=== PATIENT | male | born 1975 | race African-American/Black ===

== ENCOUNTER 2019-06-24 17:17 | Inpatient (IN) | payer OTHER ==
[2019-06-24 18:23] VITALS: BMI 26.6
--- NOTE | 2019-06-24 19:49 | HP ---
CIWA Score - Admission Criteria [facility] Guidelines: Admission for Medically Managed Detox: Requires at least one of the followin. CIWA greater than 12 2. Seizures within the past 24 hours 3. Delirium tremens within the past 24 hours 4. Hallucinations within the past 24 hours 5. Acute intervention needed for co occurring medical disorder 6. Acute intervention needed for co occurring psychiatric disorder 7. Severe withdrawal that cannot be handled at a lower level of care (continued vomiting, continued diarrhea, abnormal vital signs) requiring intravenous medication and/or fluids 8. Admission ROS [facility] Chief Complaint: here for rehab Allergies/Adverse Reactions: Allergies Allergy/AdvReac Type Severity Reaction Status Date / Time Fish Containing Products Allergy Severe Hives Verified 06/24/19 18:15 shellfish derived AdvReac Severe Hives Verified 06/24/19 18:15 History of Present Illness: 43 Y.O. MALE WITH ALCOHOLISM AND COCAINE DEPENDENCE HERE FOR REHAB. CLIENT IS REFERRED BY [facility] AFTER COMPLETING DETOX. WHILE THERE HERE WAS TRANSFERRED TO [facility] FOR A SCHIZOPHRENIA. HE SPENT 5 DAYS THERE AND NOW IS HERE FOR REHAB [facility] HAD NO OPEN BEDS. HX/O ALCOHOLISM SINCE THE AGE OF 27. DRINKS DAILY. DENIES SEIZURES BUT DOES REPORT BLACK OUTS. COCAINE STARTED ALSO AT THE SAME TIME USING ABOUT 3 TO 4 TIMES A WEEK APPROX 60 DOLLARS A WEEK. DENIES IVDU. REPORTS LONGEST CLEAN TIME 3 MONTHS. MOST RECENT CLEAN TIME 1 MONTH IN NOV 2018. HOMELESS, UNMEPLOYED, PENDING COURT CASE X3 Exam Limitations: No Limitations - Ebola screening Have you traveled outside of the country in the last 21 days: No (N) Have you had contact with anyone from an Ebola affected area: No Do you have a fever: No - Review of Systems Constitutional: Night Sweats, Changes in sleep EENT: reports: Dental Problems (MISSING TEETH /CARIES) Cardiac: reports: No Symptoms Reported GI: reports: No Symptoms Reported : reports: No Symptoms Reported Musculoskeletal: reports: No Symptoms Reported Integumentary: reports: No Symptoms Reported Neuro: reports: No Symptoms reported Endocrine: reports: No Symptoms Reported Hematology: reports: No Symptoms Reported Psychiatric: reports: Orientated x3, Anxious, Depressed (DENIES SI) Other Systems: Reviewed and Negative Patient History - Patient Medical History Hx Anemia: No Hx Asthma: Yes Hx Cancer: No Hx Cardiac Disorders: No Hx Congestive Heart Failure: No Hx Hypertension: No Hx Hypercholesterolemia: No Hx Pacemaker: No HX Cerebrovascular Accident: No Hx Seizures: No Hx Dementia: No Hx Diabetes: No Hx Gastrointestinal Disorders: No Hx Liver Disease: No Hx Genitourinary Disorders: No Hx Sexually Transmitted Disorders: No Hx Renal Disease (ESRD): No Hx Thyroid Disease: No Hx Human Immunodeficiency Virus (HIV): No Hx Hepatitis C: No Hx Depression: Yes Hx Suicide Attempt: No Hx Bipolar Disorder: No Hx Schizophrenia: Yes Other Medical History: DENIES - Patient Surgical History Past Surgical History: No - PPD History Previous Implant?: Yes Documented Results: Negative w/o proof Implanted On Prior [facility] Admission?: No PPD to be Administered?: Yes - Smoking Cessation Smoking history: Current every day smoker Have you smoked in the past 12 months: Yes Aproximately how many cigarettes per day: 5 Cigars Per Day: 0 Hx Chewing Tobacco Use: No Initiated information on smoking cessation: Yes 'Breaking Loose' booklet given: 06/24/19 - Substance & Tx. History Hx Alcohol Use: Yes Hx Substance Use: Yes Substance Use Type: Alcohol, Cocaine Hx Substance Use Treatment: Yes ([facility]) - Substances abused Alcohol Substance route: Oral Frequency: Daily Amount used: 2 pints of vodka Age of first use: 27 Date of last use: 06/20/19 Cocaine Substance route: Smoking Frequency: 3-6 times per week Amount used: 20 dollars Age of first use: 19 Date of last use: 06/18/19 Family Disease History - Family Disease History Family Disease History: Other: Father (ALCOHOL), Sister (DRUGS) Admission Physical Exam S - Vital Signs Vital Signs: Vital Signs - 24 hr 06/24/19 18:13 Temperature 97.0 F L Pulse Rate 82 Respiratory 20 Rate - Physical General Appearance: Yes: No Apparent Distress HEENTM: Yes: EOMI, Normocephalic, Normal Voice, [place], Pharynx Normal Respiratory: Yes: Chest Non-Tender, Lungs Clear, Normal Breath Sounds, No Respiratory Distress, No Accessory Muscle Use Neck: Yes: No masses,lesions,Nodules, Supple, Trachea in good position Breast: Yes: Breast Exam Deferred Cardiology: Yes: Regular Rhythm, Regular Rate, S1, S2 Abdominal: Yes: Normal Bowel Sounds, Non Tender, Flat, Soft Genitourinary: Yes: Within Normal Limits Back: Yes: Normal Inspection Musculoskeletal: Yes: full range of Motion, Gait Steady Extremities: Yes: Normal Capillary Refill, Normal Range of Motion, Non-Tender, Tremors Neurological: Yes: Fully Oriented, Alert, Motor Strength 5/5, Depressed Affect ( DENIES SI) Integumentary: Yes: Dry, Warm Lymphatic: Yes: Within Normal Limits - Diagnostic (1) Uncomplicated alcohol dependence Current Visit: Yes Status: Acute (2) Cocaine abuse, uncomplicated Current Visit: Yes Status: Acute (3) Homeless Current Visit: Yes Status: Suspected (4) Substance induced mood disorder Current Visit: Yes Status: Suspected (5) Psychiatric disorder Current Visit: Yes Status: Chronic Comment: SCHIZOPHRENIA Cleared for Admission [facility] - Detox or Rehab Detox Regimen/Protocol: Not Applicable Claeared for Rehab Admission: Yes Breathalyzer - Breathalyzer Breathalyzer: 0 Urine Drug Screen - Test Device Lot number: [id number] Expiration date: 04/01/21 - Control Is test valid?: Yes - Results Drug screen NEGATIVE: No Urine drug screen results: BZO-Benzodiazepines Inpatient Rehab Admission - Rehab Decision to Admit Inpatient rehab admission?: Yes - Initial Determination Are CD services needed?: Yes Free of communicable disease: Yes Not in need of hospitalization: Yes - Rehab Admission Criteria Previous failed treatment: Yes Poor recovery environment: Yes Comorbidities: Yes Lacks judgement: No Patient is meeting Inpatient Rehab admission criteria:: Yes
[2019-06-24] MEDS ORDERED: P-EPHED 60MG/TRIPROLIDI 2.5MG TABLET PO PRN (19:55)
[2019-06-24] MEDS ORDERED: LOPERAMIDE HCL 2 MG CAPSULE PO PRN (19:55)
[2019-06-24] MEDS ORDERED: MENTHOL/PHENOL 1 EACH UD MM PRN (19:55)
[2019-06-24] MEDS ORDERED: IBUPROFEN 400 MG TABLET (FP) PO PRN (19:55)
[2019-06-24] MEDS ORDERED: ACETAMINOPHEN 325 MG TABLET (FP) PO PRN (19:55)
[2019-06-24] MEDS ORDERED: guaiFENesin 200 MG/10 ML 10 ML UNIT-DOSE CUPS PO PRN (19:55)
[2019-06-24] MEDS: THIAMINE HCL 100 MG TABLET (FP) PO SCH (22:20)
[2019-06-25] MEDS: NICOTINE 14 MG/24 HOURS TOPICAL PATCH TD SCH (10:48)
[2019-06-25] MEDS: PRENATAL VITAMINS W/ FOLIC ACID TABLET (FP) PO SCH (10:48)
[2019-06-25] MEDS: NICOTINE POLACRILEX 2 MG GUM BC PRN (10:51)
[2019-06-25 10:59] LABS: HEMATOCRIT 39.1 % (35.4-49); HEMOGLOBIN 12.8 GM/dL (11.7-16.9); MCH 29.5 pg (25.7-33.7); MCHC 32.7 g/dl (32.0-35.9); MEAN CELL VOLUME 90.2 fl (80-96); RBC 4.33 M/mm3 (4.00-5.60); RDW 15.2 % (11.9-15.9); WHITE BLOOD COUNT 5.7 K/mm3 (4.0-10.0)
[2019-06-25 11:15] LABS: BILIRUBIN,TOTAL 0.3 mg/dL (0.2-1); BLOOD UREA NITROGEN 20.6 mg/dL (7-18); CALCIUM 8.9 mg/dL (8.5-10.1); CREATININE 0.9 mg/dL (0.55-1.3); POTASSIUM 3.8 mmol/L (3.5-5.1); TOT PROT 7.5 g/dl (6.4-8.2)
[2019-06-25 11:25] LABS: PLATELET COUNT 319 K/MM3 (134-434)
[2019-06-25 14:20] LABS: RPR REACTIVE 1:8 (NONREACTIVE)
[2019-06-25 18:34] LABS: PH,URINE 7.5 (5.0-8.0); URINE APPEARANCE CLEAR; URINE BILIRUBIN NEGATIVE (NEGATIVE); URINE COLOR YELLOW; URINE GLUCOSE (UA) NEGATIVE (NEGATIVE); URINE KETONE NEGATIVE (NEGATIVE); URINE LEUK ESTERASE NEGATIVE (NEGATIVE); URINE NITRITE NEGATIVE (NEGATIVE); URINE PROTEIN NEGATIVE (NEGATIVE); URINE UROBILINOGEN 0.2 mg/dL (0.2-1.0)
[2019-06-25] MEDS: THIAMINE HCL 100 MG TABLET (FP) PO SCH (21:56)
[2019-06-25] MEDS: MELATONIN 5 MG TABLETS PO PRN (21:56)
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
[2019-06-26] MEDS: PRENATAL VITAMINS W/ FOLIC ACID TABLET (FP) PO SCH (09:57)
[2019-06-26] MEDS: NICOTINE 14 MG/24 HOURS TOPICAL PATCH TD SCH (09:57)
[2019-06-26] MEDS ORDERED: ARIPiprazole 10 MG TABLET PO SCH (13:45)
[2019-06-26] MEDS: GABAPENTIN 300 MG CAPSULE (FP) PO SCH ×2 (13:47→21:58)
[2019-06-26] MEDS: ARIPiprazole 10 MG TABLET PO SCH (14:57)
[2019-06-26 15:27] LABS: TREPONEMA ANTIBODY REACTIVE (NONREACTIVE)
[2019-06-26] MEDS: THIAMINE HCL 100 MG TABLET (FP) PO SCH (21:58)
[2019-06-26] MEDS: MELATONIN 5 MG TABLETS PO PRN (21:58)
[2019-06-26] MEDS: hydrOXYzine PAMOATE 50 MG CAPSULE (FP) PO PRN (21:58)
[2019-06-26] MEDS: traZODone HCL 50 MG TABLET (FP) PO SCH (21:58)
[2019-06-27] MEDS: GABAPENTIN 300 MG CAPSULE (FP) PO SCH ×3 (06:20→21:51)
--- NOTE | 2019-06-27 13:03 | EKG ---
Test Reason : Blood Pressure : / mmHG Vent. Rate : 077 BPM Atrial Rate : 077 BPM P-R Int : 150 ms QRS Dur : 098 ms QT Int : 396 ms P-R-T Axes : 068 055 057 degrees QTc Int : 448 ms NORMAL SINUS RHYTHM SEPTAL INFARCT , AGE UNDETERMINED ABNORMAL ECG NO PREVIOUS ECGS AVAILABLE Confirmed by ESTELA BEAR, KELLE ([id number]) on 06/27/2019 1:02:33 PM Referred By: Jenelle Matos Confirmed By:KELLE PALMER MD
[2019-06-27] MEDS: PRENATAL VITAMINS W/ FOLIC ACID TABLET (FP) PO SCH (13:48)
[2019-06-27] MEDS: ARIPiprazole 10 MG TABLET PO SCH (13:48)
[2019-06-27] MEDS: NICOTINE 14 MG/24 HOURS TOPICAL PATCH TD SCH (13:48)
[2019-06-27] MEDS: traZODone HCL 50 MG TABLET (FP) PO SCH (21:50)
[2019-06-27] MEDS: THIAMINE HCL 100 MG TABLET (FP) PO SCH (21:51)
[2019-06-27] MEDS: MAGNESIUM HYDROX 2400MG/30ML ORAL SUSPENSION 30 ML CUP PO PRN (21:52)
[2019-06-28] MEDS: GABAPENTIN 300 MG CAPSULE (FP) PO SCH ×3 (06:27→21:07)
[2019-06-28] MEDS: PRENATAL VITAMINS W/ FOLIC ACID TABLET (FP) PO SCH (10:10)
[2019-06-28] MEDS: ARIPiprazole 10 MG TABLET PO SCH (10:10)
[2019-06-28] MEDS: NICOTINE 14 MG/24 HOURS TOPICAL PATCH TD SCH (10:11)
--- NOTE | 2019-06-28 10:25 | PN ---
[facility] Progress Note (SOAP) Subjective: patient with RPR of 1:8 upon admission. Patient states he was treated at [facility] for the same. Objective: 06/28/19 10:23 Laboratory Tests 06/25/19 06/25/19 06/25/19 09:35 09:35 09:35 WBC 5.7 RBC 4.33 Hgb 12.8 Hct 39.1 MCV 90.2 MCH 29.5 MCHC 32.7 RDW 15.2 Plt Count 319 MPV 8.0 Sodium 141 Potassium 3.8 Chloride 104 Carbon Dioxide 29 Anion Gap 8 BUN 20.6 H Creatinine 0.9 Est GFR (CKD-EPI)AfAm 121.67 Est GFR (CKD-EPI)NonAf 104.98 Random Glucose 97 Calcium 8.9 Total Bilirubin 0.3 AST 27 ALT 64 H Alkaline Phosphatase 90 Total Protein 7.5 Albumin 4.0 Urine Color Urine Appearance Urine pH Ur Specific [place] Urine Protein Urine Glucose (UA) Urine Ketones Urine Blood Urine Nitrite Urine Bilirubin Urine Urobilinogen Ur Leukocyte Esterase RPR Titer Reactive 1:8 H T.pallidum Ab (A) Reactive 06/25/19 18:00 WBC RBC Hgb Hct MCV MCH MCHC RDW Plt Count MPV Sodium Potassium Chloride Carbon Dioxide Anion Gap BUN Creatinine Est GFR (CKD-EPI)AfAm Est GFR (CKD-EPI)NonAf Random Glucose Calcium Total Bilirubin AST ALT Alkaline Phosphatase Total Protein Albumin Urine Color Yellow Urine Appearance Clear Urine pH 7.5 Ur Specific [place] 1.017 Urine Protein Negative Urine Glucose (UA) Negative Urine Ketones Negative Urine Blood Negative Urine Nitrite Negative Urine Bilirubin Negative Urine Urobilinogen 0.2 Ur Leukocyte Esterase Negative RPR Titer T.pallidum Ab (A) Assessment: Positive RPR 06/28/19 10:24 Plan: Recently treated at [facility]. Educated re: safer sex.
[2019-06-28] MEDS: MELATONIN 5 MG TABLETS PO PRN (21:07)
[2019-06-28] MEDS: THIAMINE HCL 100 MG TABLET (FP) PO SCH (21:07)
[2019-06-28] MEDS: traZODone HCL 50 MG TABLET (FP) PO SCH (21:07)
[2019-06-28] MEDS: MAGNESIUM HYDROX 2400MG/30ML ORAL SUSPENSION 30 ML CUP PO PRN (21:10)
[2019-06-29] MEDS: GABAPENTIN 300 MG CAPSULE (FP) PO SCH ×3 (06:00→21:46)
[2019-06-29] MEDS: NICOTINE 14 MG/24 HOURS TOPICAL PATCH TD SCH (10:12)
[2019-06-29] MEDS: ARIPiprazole 10 MG TABLET PO SCH (10:12)
[2019-06-29] MEDS: PRENATAL VITAMINS W/ FOLIC ACID TABLET (FP) PO SCH (10:12)
[2019-06-29] MEDS: MAGNESIUM HYDROX 2400MG/30ML ORAL SUSPENSION 30 ML CUP PO PRN (17:03)
[2019-06-29] MEDS: traZODone HCL 50 MG TABLET (FP) PO SCH (21:46)
[2019-06-29] MEDS: THIAMINE HCL 100 MG TABLET (FP) PO SCH (21:46)
[2019-06-29] MEDS: MAGNESIUM CITRATE 300 ML BOTTLE PO PRN (21:48)
[2019-06-30] MEDS: GABAPENTIN 300 MG CAPSULE (FP) PO SCH ×3 (06:25→21:09)
[2019-06-30] MEDS: NICOTINE 14 MG/24 HOURS TOPICAL PATCH TD SCH (10:44)
[2019-06-30] MEDS: PRENATAL VITAMINS W/ FOLIC ACID TABLET (FP) PO SCH (10:44)
[2019-06-30] MEDS: ARIPiprazole 10 MG TABLET PO SCH (10:44)
[2019-06-30] MEDS: traZODone HCL 50 MG TABLET (FP) PO SCH (21:09)
[2019-06-30] MEDS: THIAMINE HCL 100 MG TABLET (FP) PO SCH (21:09)
[2019-06-30] MEDS: MELATONIN 5 MG TABLETS PO PRN (21:10)
[2019-06-30] MEDS: MAGNESIUM CITRATE 300 ML BOTTLE PO PRN (21:11)
[2019-07-01] MEDS: GABAPENTIN 300 MG CAPSULE (FP) PO SCH ×3 (05:52→21:33)
[2019-07-01] MEDS: ARIPiprazole 10 MG TABLET PO SCH (10:05)
[2019-07-01] MEDS: PRENATAL VITAMINS W/ FOLIC ACID TABLET (FP) PO SCH (10:05)
[2019-07-01] MEDS: NICOTINE 14 MG/24 HOURS TOPICAL PATCH TD SCH (10:06)
[2019-07-01] MEDS: traZODone HCL 50 MG TABLET (FP) PO SCH (21:33)
[2019-07-01] MEDS: MELATONIN 5 MG TABLETS PO PRN (21:33)
[2019-07-01] MEDS: THIAMINE HCL 100 MG TABLET (FP) PO SCH (21:33)
[2019-07-01] MEDS: MAGNESIUM HYDROX 2400MG/30ML ORAL SUSPENSION 30 ML CUP PO PRN (21:34)
[2019-07-02] MEDS: GABAPENTIN 300 MG CAPSULE (FP) PO SCH ×3 (06:13→21:47)
[2019-07-02] MEDS: NICOTINE 14 MG/24 HOURS TOPICAL PATCH TD SCH (10:13)
[2019-07-02] MEDS: PRENATAL VITAMINS W/ FOLIC ACID TABLET (FP) PO SCH (10:13)
[2019-07-02] MEDS: traZODone HCL 50 MG TABLET (FP) PO SCH (21:46)
[2019-07-02] MEDS: THIAMINE HCL 100 MG TABLET (FP) PO SCH (21:47)
[2019-07-02] MEDS: MAGNESIUM CITRATE 300 ML BOTTLE PO PRN (21:59)
[2019-07-03] MEDS: GABAPENTIN 300 MG CAPSULE (FP) PO SCH ×3 (06:17→21:46)
[2019-07-03] MEDS: PRENATAL VITAMINS W/ FOLIC ACID TABLET (FP) PO SCH (10:13)
[2019-07-03] MEDS: NICOTINE 14 MG/24 HOURS TOPICAL PATCH TD SCH (10:38)
[2019-07-03] MEDS: hydrOXYzine PAMOATE 50 MG CAPSULE (FP) PO PRN (14:13)
[2019-07-03] MEDS: traZODone HCL 50 MG TABLET (FP) PO SCH (21:46)
[2019-07-03] MEDS: THIAMINE HCL 100 MG TABLET (FP) PO SCH (21:46)
[2019-07-03] MEDS: MELATONIN 5 MG TABLETS PO PRN (21:47)
[2019-07-04] MEDS: GABAPENTIN 300 MG CAPSULE (FP) PO SCH ×3 (06:21→21:42)
[2019-07-04] MEDS: NICOTINE 14 MG/24 HOURS TOPICAL PATCH TD SCH (10:01)
[2019-07-04] MEDS: PRENATAL VITAMINS W/ FOLIC ACID TABLET (FP) PO SCH (10:01)
[2019-07-04] MEDS: NICOTINE POLACRILEX 2 MG GUM BC PRN (10:02)
[2019-07-04] MEDS: THIAMINE HCL 100 MG TABLET (FP) PO SCH (21:42)
[2019-07-04] MEDS: MELATONIN 5 MG TABLETS PO PRN (21:42)
[2019-07-04] MEDS: traZODone HCL 50 MG TABLET (FP) PO SCH (21:42)
[2019-07-05] MEDS: GABAPENTIN 300 MG CAPSULE (FP) PO SCH ×3 (06:03→21:11)
[2019-07-05] MEDS: PRENATAL VITAMINS W/ FOLIC ACID TABLET (FP) PO SCH (09:55)
[2019-07-05] MEDS: NICOTINE POLACRILEX 2 MG GUM BC PRN (09:56)
[2019-07-05] MEDS: NICOTINE 14 MG/24 HOURS TOPICAL PATCH TD SCH (09:56)
[2019-07-05] MEDS: MAG HYDROX/AL HYDROX/SIMETH 30 ML UNIT-DOSE CUP PO PRN (15:43)
[2019-07-05] MEDS: THIAMINE HCL 100 MG TABLET (FP) PO SCH (21:10)
[2019-07-05] MEDS: MELATONIN 5 MG TABLETS PO PRN (21:11)
[2019-07-05] MEDS: traZODone HCL 50 MG TABLET (FP) PO SCH (21:11)
[2019-07-06] MEDS: GABAPENTIN 300 MG CAPSULE (FP) PO SCH ×3 (06:03→21:44)
[2019-07-06] MEDS: NICOTINE 14 MG/24 HOURS TOPICAL PATCH TD SCH (10:14)
[2019-07-06] MEDS: PRENATAL VITAMINS W/ FOLIC ACID TABLET (FP) PO SCH (10:14)
[2019-07-06] MEDS: NICOTINE POLACRILEX 2 MG GUM BC PRN (10:15)
[2019-07-06] MEDS ORDERED: PENICILLIN G BENZATHINE 2,400,000 UNIT/4 ML PFS IM ONE (10:17)
--- NOTE | 2019-07-06 10:29 | PN ---
[facility] Progress Note (SOAP) Subjective: Patient has an RPR of 1.8. He reported that he received one dose of penicillin 2.4 million units at his program (please see previous note). Subsequently, on 07/05, [facility] received a request from [facility] to give patient 2 more doses of Penicillin 2.4 million units. In discussion with the patient today, he reports that he received 2 doses at one time at his program, but agreed to at least one more dose of penicillin. Objective: Physical: General: No apparent distress Heart: S1 s2 audible Lungs: clear Abd: soft Genitourinary: no lesions noted Skin: no rashes or lesions. Lymph: no palpable lymph nodes. 07/06/19 10:28 Assessment: syphilis, treatment incomplete. 07/06/19 10:29 07/06/19 10:32 Plan: Will give one dose of Penicillin today. Patient consented to allow me to talk to program medical provider about his care to determine if he has received one or two doses of penicillin. Once previous dose is confirmed, I will contact the [facility] international representative and share information and then treat accordingly (one more dose if needed). Patient agreed to this plan.
[2019-07-06] MEDS: traZODone HCL 50 MG TABLET (FP) PO SCH (21:43)
[2019-07-06] MEDS: THIAMINE HCL 100 MG TABLET (FP) PO SCH (21:44)
[2019-07-07] MEDS: GABAPENTIN 300 MG CAPSULE (FP) PO SCH ×3 (05:59→21:41)
[2019-07-07] MEDS: PRENATAL VITAMINS W/ FOLIC ACID TABLET (FP) PO SCH (10:08)
[2019-07-07] MEDS: NICOTINE 14 MG/24 HOURS TOPICAL PATCH TD SCH (10:08)
--- NOTE | 2019-07-07 14:54 | PN ---
[facility] Progress Note (SOAP) Subjective: Patient with incomplete treatment of syphilis. [facility] requested that he be given 2 more doses of PCN. Patient was given one dose of 2.4 Million unites of PCN at his program. Patient believed he was given 2 doses, but agreed to one dose here and to give me consent to talk to his medical provider at his program. Objective: P/E: General: no apparent distress Skin: no rash on trunk, extremities, palms of hands or soles of feet. Neuro: No neurological deficits noted. 07/07/19 14:49 07/07/19 14:50 Assessment: Syphilis, incomplete treatment. 07/07/19 14:50 Plan: Confirmed with his provider, Dr. Mine Garcia, that the patient receive one dose of PCN that was split into two injections. I explained this to the patient and that he needed a third dose. Patient agreed to third dose. In accordance with direction from [facility], patient will receive the third dose next week, if he is discharged before he receives the third dose, he will be given a prescription for doxycycline. Patient agreed to plan. Amelia Arredondo of the [facility] was called and message was left for her to call me back. Will follow up.
[2019-07-07] MEDS: NICOTINE POLACRILEX 2 MG GUM BC PRN (15:13)
[2019-07-07] MEDS: SENNOSIDES 8.6MG TABLET (FP) PO PRN (15:15)
[2019-07-07] MEDS: THIAMINE HCL 100 MG TABLET (FP) PO SCH (21:41)
[2019-07-07] MEDS: MELATONIN 5 MG TABLETS PO PRN (21:41)
[2019-07-07] MEDS: traZODone HCL 50 MG TABLET (FP) PO SCH (21:41)
[2019-07-08] MEDS: GABAPENTIN 300 MG CAPSULE (FP) PO SCH ×3 (06:06→21:42)
[2019-07-08] MEDS: PRENATAL VITAMINS W/ FOLIC ACID TABLET (FP) PO SCH (10:11)
[2019-07-08] MEDS: NICOTINE 14 MG/24 HOURS TOPICAL PATCH TD SCH (10:11)
[2019-07-08] MEDS: MAGNESIUM CITRATE 300 ML BOTTLE PO PRN (10:13)
[2019-07-08] MEDS: NICOTINE POLACRILEX 2 MG GUM BC PRN (10:14)
[2019-07-08] MEDS: traZODone HCL 50 MG TABLET (FP) PO SCH (21:42)
[2019-07-08] MEDS: THIAMINE HCL 100 MG TABLET (FP) PO SCH (21:42)
[2019-07-08] MEDS: MAGNESIUM HYDROX 2400MG/30ML ORAL SUSPENSION 30 ML CUP PO PRN (21:43)
[2019-07-08] MEDS: MELATONIN 5 MG TABLETS PO PRN (21:45)
[2019-07-09] MEDS: GABAPENTIN 300 MG CAPSULE (FP) PO SCH ×3 (06:15→21:06)
[2019-07-09] MEDS: NICOTINE 14 MG/24 HOURS TOPICAL PATCH TD SCH (10:14)
[2019-07-09] MEDS: PRENATAL VITAMINS W/ FOLIC ACID TABLET (FP) PO SCH (10:14)
[2019-07-09] MEDS: MAG HYDROX/AL HYDROX/SIMETH 30 ML UNIT-DOSE CUP PO PRN (14:21)
[2019-07-09] MEDS: THIAMINE HCL 100 MG TABLET (FP) PO SCH (21:06)
[2019-07-09] MEDS: traZODone HCL 50 MG TABLET (FP) PO SCH (21:06)
[2019-07-09] MEDS: SENNOSIDES 8.6MG TABLET (FP) PO PRN (21:07)
[2019-07-09] MEDS: MELATONIN 5 MG TABLETS PO PRN (21:07)
[2019-07-10] MEDS: GABAPENTIN 300 MG CAPSULE (FP) PO SCH ×3 (06:26→21:36)
[2019-07-10] MEDS: NICOTINE 14 MG/24 HOURS TOPICAL PATCH TD SCH (09:37)
[2019-07-10] MEDS: PRENATAL VITAMINS W/ FOLIC ACID TABLET (FP) PO SCH (09:37)
[2019-07-10] MEDS ORDERED: POLYETHYLENE GLYCOL 3350 119 GM BTL PO ONE (12:59)
--- NOTE | 2019-07-10 12:59 | PN ---
[facility] Progress Note Note: Pt with persistent constipation- will order miralax
[2019-07-10] MEDS ORDERED: PT OWN MED DRAWER 7, Y5N ONE (15:29)
[2019-07-10] MEDS: traZODone HCL 50 MG TABLET (FP) PO SCH (21:36)
[2019-07-10] MEDS: THIAMINE HCL 100 MG TABLET (FP) PO SCH (21:36)
[2019-07-10] MEDS: MELATONIN 5 MG TABLETS PO PRN (21:37)
[2019-07-11] MEDS: GABAPENTIN 300 MG CAPSULE (FP) PO SCH ×3 (05:58→21:52)
[2019-07-11] MEDS: PRENATAL VITAMINS W/ FOLIC ACID TABLET (FP) PO SCH (09:51)
[2019-07-11] MEDS: NICOTINE 14 MG/24 HOURS TOPICAL PATCH TD SCH (09:52)
[2019-07-11] MEDS: NICOTINE POLACRILEX 2 MG GUM BC PRN (09:52)
[2019-07-11] MEDS: DOCUSATE SODIUM 100 MG CAPSULE (FP) PO SCH ×2 (14:14→21:52)
[2019-07-11] MEDS: traZODone HCL 50 MG TABLET (FP) PO SCH (21:52)
[2019-07-11] MEDS: MELATONIN 5 MG TABLETS PO PRN (21:52)
[2019-07-11] MEDS: THIAMINE HCL 100 MG TABLET (FP) PO SCH (21:52)
[2019-07-12] MEDS: GABAPENTIN 300 MG CAPSULE (FP) PO SCH ×3 (06:10→21:42)
[2019-07-12] MEDS: DOCUSATE SODIUM 100 MG CAPSULE (FP) PO SCH ×3 (06:10→21:42)
[2019-07-12] MEDS ORDERED: PT OWN MED DRAWER 7, Y5N ONE (09:00)
[2019-07-12] MEDS ORDERED: ARIPIPRAZOLE (ABILIFY MAINTENA) 400 MG DISPENSE SYRINGE IM ONE (10:00)
[2019-07-12] MEDS: PRENATAL VITAMINS W/ FOLIC ACID TABLET (FP) PO SCH (10:04)
[2019-07-12] MEDS: NICOTINE 14 MG/24 HOURS TOPICAL PATCH TD SCH (10:13)
[2019-07-12] MEDS: NICOTINE POLACRILEX 2 MG GUM BC PRN (14:45)
[2019-07-12] MEDS ORDERED: PENICILLIN G BENZATHINE 2,400,000 UNIT/4 ML PFS IM ONE (14:54)
--- NOTE | 2019-07-12 15:21 | PN ---
[facility] Progress Note Note: Contacted Ms. Arredondo from the [facility] regarding the syphilis treatment for this patient. Ms. Arredondo was informed of our plan for the patient. He received one dose of PCN 2.4 units on 07/06, will receive a second dose tomorrow 07/13 and again on 07/20. If the patient leaves before the third dose on 07/20, he will be given a prescription for doxycycline. In addition, Ms. Arredondo asked about an HIV test for the patient and possibly PrEP. The patient refused an HIV test at [facility] and did not have a test here. Informed Ms. Arredondo that I would speak to the patient about an HIV test and referral, if needed for PrEP or HIV care (if the patient agrees to an HIV test). Ms. Arredondo agreed with the plan.
[2019-07-12] MEDS ORDERED: ALBUTEROL SO4 8 GM HFA INHALER IH PRN (15:59)
[2019-07-12] MEDS: traZODone HCL 50 MG TABLET (FP) PO SCH (21:43)
[2019-07-12] MEDS: THIAMINE HCL 100 MG TABLET (FP) PO SCH (21:44)
[2019-07-12] MEDS: MELATONIN 5 MG TABLETS PO PRN (21:45)
[2019-07-13] MEDS: DOCUSATE SODIUM 100 MG CAPSULE (FP) PO SCH ×3 (06:25→21:06)
[2019-07-13] MEDS: GABAPENTIN 300 MG CAPSULE (FP) PO SCH ×3 (06:25→21:06)
[2019-07-13] MEDS: PRENATAL VITAMINS W/ FOLIC ACID TABLET (FP) PO SCH (10:33)
[2019-07-13] MEDS: NICOTINE 14 MG/24 HOURS TOPICAL PATCH TD SCH (10:34)
--- NOTE | 2019-07-13 12:40 | PN ---
S Progress Note Note: TALKED TO PATIENT TODAY AND HE AGREED TO HIV TEST. ALSO AGREED TO THIRD DOSE OF PCN.
[2019-07-13] MEDS ORDERED: PENICILLIN G BENZATHINE 2,400,000 UNIT/4 ML PFS IM ONE (16:15)
[2019-07-13] MEDS: traZODone HCL 50 MG TABLET (FP) PO SCH (21:06)
[2019-07-13] MEDS: THIAMINE HCL 100 MG TABLET (FP) PO SCH (21:06)
[2019-07-13] MEDS: MAGNESIUM CITRATE 300 ML BOTTLE PO PRN (21:07)
[2019-07-13] MEDS: MELATONIN 5 MG TABLETS PO PRN (21:07)
[2019-07-14] MEDS: DOCUSATE SODIUM 100 MG CAPSULE (FP) PO SCH ×3 (06:12→21:46)
[2019-07-14] MEDS: GABAPENTIN 300 MG CAPSULE (FP) PO SCH ×3 (06:12→21:47)
[2019-07-14] MEDS: NICOTINE 14 MG/24 HOURS TOPICAL PATCH TD SCH (10:35)
[2019-07-14] MEDS: PRENATAL VITAMINS W/ FOLIC ACID TABLET (FP) PO SCH (10:35)
[2019-07-14] MEDS: traZODone HCL 50 MG TABLET (FP) PO SCH (21:45)
[2019-07-14] MEDS: THIAMINE HCL 100 MG TABLET (FP) PO SCH (21:46)
[2019-07-14] MEDS: MELATONIN 5 MG TABLETS PO PRN (21:47)
[2019-07-15] MEDS: DOCUSATE SODIUM 100 MG CAPSULE (FP) PO SCH ×3 (06:06→21:05)
[2019-07-15] MEDS: GABAPENTIN 300 MG CAPSULE (FP) PO SCH ×3 (06:06→21:05)
[2019-07-15] MEDS: PRENATAL VITAMINS W/ FOLIC ACID TABLET (FP) PO SCH (10:33)
[2019-07-15] MEDS: NICOTINE 14 MG/24 HOURS TOPICAL PATCH TD SCH (10:34)
[2019-07-15] MEDS: MELATONIN 5 MG TABLETS PO PRN (21:05)
[2019-07-15] MEDS: traZODone HCL 50 MG TABLET (FP) PO SCH (21:05)
[2019-07-15] MEDS: THIAMINE HCL 100 MG TABLET (FP) PO SCH (21:05)
[2019-07-16] MEDS: GABAPENTIN 300 MG CAPSULE (FP) PO SCH ×3 (06:10→21:56)
[2019-07-16] MEDS: DOCUSATE SODIUM 100 MG CAPSULE (FP) PO SCH ×3 (06:10→21:56)
[2019-07-16] MEDS: NICOTINE 14 MG/24 HOURS TOPICAL PATCH TD SCH (10:18)
[2019-07-16] MEDS: PRENATAL VITAMINS W/ FOLIC ACID TABLET (FP) PO SCH (10:18)
[2019-07-16] MEDS: MAGNESIUM CITRATE 300 ML BOTTLE PO PRN (18:28)
[2019-07-16] MEDS: THIAMINE HCL 100 MG TABLET (FP) PO SCH (21:56)
[2019-07-16] MEDS: traZODone HCL 50 MG TABLET (FP) PO SCH (21:57)
[2019-07-16] MEDS: MELATONIN 5 MG TABLETS PO PRN (21:57)
[2019-07-17] MEDS: DOCUSATE SODIUM 100 MG CAPSULE (FP) PO SCH ×3 (06:22→21:05)
[2019-07-17] MEDS: GABAPENTIN 300 MG CAPSULE (FP) PO SCH ×3 (06:22→21:05)
[2019-07-17] MEDS: PRENATAL VITAMINS W/ FOLIC ACID TABLET (FP) PO SCH (10:11)
[2019-07-17] MEDS: NICOTINE POLACRILEX 2 MG GUM BC PRN (10:12)
[2019-07-17] MEDS: NICOTINE 14 MG/24 HOURS TOPICAL PATCH TD SCH (10:12)
[2019-07-17] MEDS: THIAMINE HCL 100 MG TABLET (FP) PO SCH (21:05)
[2019-07-17] MEDS: traZODone HCL 50 MG TABLET (FP) PO SCH (21:05)
[2019-07-17] MEDS: MELATONIN 5 MG TABLETS PO PRN (21:05)
[2019-07-18] MEDS: DOCUSATE SODIUM 100 MG CAPSULE (FP) PO SCH ×3 (06:11→21:27)
[2019-07-18] MEDS: GABAPENTIN 300 MG CAPSULE (FP) PO SCH ×3 (06:11→21:27)
[2019-07-18] MEDS: NICOTINE 14 MG/24 HOURS TOPICAL PATCH TD SCH (10:33)
[2019-07-18] MEDS: PRENATAL VITAMINS W/ FOLIC ACID TABLET (FP) PO SCH (10:33)
[2019-07-18] MEDS: traZODone HCL 50 MG TABLET (FP) PO SCH (21:26)
[2019-07-18] MEDS: MELATONIN 5 MG TABLETS PO PRN (21:27)
[2019-07-18] MEDS: THIAMINE HCL 100 MG TABLET (FP) PO SCH (21:27)
[2019-07-19] MEDS: DOCUSATE SODIUM 100 MG CAPSULE (FP) PO SCH ×3 (05:58→21:12)
[2019-07-19] MEDS: GABAPENTIN 300 MG CAPSULE (FP) PO SCH ×3 (05:58→21:12)
[2019-07-19] MEDS: NICOTINE POLACRILEX 2 MG GUM BC PRN (10:25)
[2019-07-19] MEDS: PRENATAL VITAMINS W/ FOLIC ACID TABLET (FP) PO SCH (10:25)
[2019-07-19] MEDS: NICOTINE 14 MG/24 HOURS TOPICAL PATCH TD SCH (10:25)
[2019-07-19] MEDS ORDERED: PT OWN MED DRAWER 7, Y5N ONE (16:48)
[2019-07-19] MEDS: traZODone HCL 50 MG TABLET (FP) PO SCH (21:12)
[2019-07-19] MEDS: MELATONIN 5 MG TABLETS PO PRN (21:12)
[2019-07-19] MEDS: THIAMINE HCL 100 MG TABLET (FP) PO SCH (21:12)
[2019-07-20] MEDS: DOCUSATE SODIUM 100 MG CAPSULE (FP) PO SCH ×3 (06:02→21:43)
[2019-07-20] MEDS: GABAPENTIN 300 MG CAPSULE (FP) PO SCH ×3 (06:02→21:41)
[2019-07-20] MEDS ORDERED: PENICILLIN G BENZATHINE 2,400,000 UNIT/4 ML PFS IM ONE (10:00)
[2019-07-20] MEDS: PRENATAL VITAMINS W/ FOLIC ACID TABLET (FP) PO SCH (10:20)
[2019-07-20] MEDS: NICOTINE 14 MG/24 HOURS TOPICAL PATCH TD SCH (10:20)
[2019-07-20] MEDS: traZODone HCL 50 MG TABLET (FP) PO SCH (21:41)
[2019-07-20] MEDS: THIAMINE HCL 100 MG TABLET (FP) PO SCH (21:41)
[2019-07-20] MEDS: MELATONIN 5 MG TABLETS PO PRN (21:43)
[2019-07-21] MEDS: GABAPENTIN 300 MG CAPSULE (FP) PO SCH ×3 (06:24→21:47)
[2019-07-21] MEDS: DOCUSATE SODIUM 100 MG CAPSULE (FP) PO SCH ×3 (06:24→21:47)
[2019-07-21] MEDS: PRENATAL VITAMINS W/ FOLIC ACID TABLET (FP) PO SCH (09:48)
[2019-07-21] MEDS: NICOTINE 14 MG/24 HOURS TOPICAL PATCH TD SCH (09:48)
[2019-07-21] MEDS: traZODone HCL 50 MG TABLET (FP) PO SCH (21:47)
[2019-07-21] MEDS: THIAMINE HCL 100 MG TABLET (FP) PO SCH (21:47)
[2019-07-21] MEDS: MELATONIN 5 MG TABLETS PO PRN (21:48)
[2019-07-22] MEDS: DOCUSATE SODIUM 100 MG CAPSULE (FP) PO SCH (06:24)
[2019-07-22] MEDS: GABAPENTIN 300 MG CAPSULE (FP) PO SCH (06:24)
--- NOTE | 2019-07-22 08:56 | PN ---
S Progress Note Note: Psychiatric nurse practitioner note: Patient scheduled for discharge today. A 30 day prescription of Trazodone 50mg HS + Gabapentin 300mg TID was electronically sent to [facility] pharmacy at [address] [place] [address].
[2019-07-22 09:03] VITALS: BP 132/72; PULSE 81; TEMP 98.4
[2019-07-22 09:10] LABS: RPR REACTIVE 1:8 (NONREACTIVE)
[2019-07-22 09:11] LABS: TREPONEMA ANTIBODY PREVIOUSLY REACTIVE (NONREACTIVE)
--- NOTE | 2019-07-22 10:02 | DS ---
[facility] Rehab Discharge Summary - [facility] Rehab Discharge Summary Admission Date: 06/24/19 Discharge Date: 07/22/19 - History Present History: Alcohol dependence, Cocaine dependence - Discharge Physical Exam Vital Signs: Vital Signs Temperature 98.4 F 07/22/19 06:00 Pulse Rate 81 07/22/19 06:00 Respiratory Rate 20 07/22/19 06:00 Blood Pressure 132/72 07/22/19 06:00 O2 Sat by Pulse Oximetry (%) Pertinent Admission Physical Exam Findings: Patient is a 43 year old AA male with ETOH and cocaine dependence. First time admission at [facility]. ROS: denies headache, N/V/D, chest pain, sob and dizziness. PE alert and oriented x 3 skin warm and dry +perrla, eoms intact bl neck supple,no jvd ext full rom, no tremors amb ad kirill - Treatment Discharge Condition: Discharge condition good Hospital Course: Patient admitted to rehab for ETOH/Cocaine dependence. During hospital course, patient treated for +RPR and elevated titres 1:8. Patient given 3 doses of PCN and tolerated treatment. Attended group meetings and motivated to maintain sobriety. Patient able to identify triggers and positive coping mechanisms. Patient is medically stable and denies SI/HI at time of discharge. - Medication Discharge Medications: Ambulatory Orders Gabapentin 300 mg PO TID 06/24/19 Trazodone HCl 50 mg PO HS 06/24/19 Albuterol Sulfate [Albuterol Sulfate Hfa] 2 inhaler PO Q4HWA PRN #1 hfa.aer.ad 07/21/19 Folic Acid 1 mg PO DAILY #30 tablet 07/21/19 Gabapentin [Neurontin -] 300 mg PO TID #90 capsule 07/22/19 traZODone HCL [Desyrel -] 50 mg PO HS #30 tablet 07/22/19 - Medication-Assisted Treatment (MAT) Medication-Assisted Treatment (MAT): No - Discharge Instructions Diet, activity, other medical instructions: Diet:as osmany Activity: as osmany Other medical instructions: to follow up with pcp to continue medical management of chronic conditions - Diagnosis (1) Cocaine abuse, uncomplicated Current Visit: Yes Status: Chronic (2) Uncomplicated alcohol dependence Current Visit: Yes Status: Chronic (3) Bronchial asthma Current Visit: Yes Status: Chronic (4) Nicotine dependence Current Visit: Yes Status: Chronic - Follow-up Referral Minutes to complete discharge: 30 - AMA Did Patient Leave Against Medical Advice: No
== END 2019-07-22 10:10 | disposition home or self-care (01) | DRG 772 ==
LOC: YASAS 17:17 → Y3W 19:45
PROVIDERS: ADMIT Neuromusculoskeletal Medicine & OMM; ATTEND Neuromusculoskeletal Medicine & OMM
PROC: HZ42ZZZ Group Counseling for Substance Abuse Treatment, Cognitive-Behavioral (ICD-10-PCS; principal; 2019-06-24)
DX: F10.20 Alcohol dependence, uncomplicated (principal); F14.20 Cocaine dependence, uncomplicated; F17.210 Nicotine dependence, cigarettes, uncomplicated; F19.280 Other psychoactive substance dependence with psychoactive substance-induced anxiety disorder; F19.282 Other psychoactive substance dependence with psychoactive substance-induced sleep disorder; F19.24 Other psychoactive substance dependence with psychoactive substance-induced mood disorder; F20.9 Schizophrenia, unspecified; F32.9 Major depressive disorder, single episode, unspecified; J45.909 Unspecified asthma, uncomplicated; K59.00 Constipation, unspecified; A53.0 Latent syphilis, unspecified as early or late; Z59.0 Homelessness
CPT/HCPCS: 36415; 80053; 81003; 85027; 86480; 86593; 86780; 93005; 93010